=== PATIENT | female | born 1970 | race Two or more races ===

== ENCOUNTER 2017-06-19 17:53 | Emergency (ER) | payer SELFPAY ==
[~2017-06-19] VITALS: Ht 152.4 cm; Wt 59.0 kg
[2017-06-19 18:04] VITALS: BP 126/60
[2017-06-19 19:23] LABS: BASOPHILS % (AUTO) 0.8 % (0.0-2.0); EOSINOPHILS % (AUTO) 0.3 % (0.0-3.0); HEMATOCRIT 41.3 % (37.0-47.0); HEMOGLOBIN 13.3 G/DL (12.0-16.0); MEAN CORPUSCULAR VOLUME 92 FL (80-99); MONOCYTES % (AUTO) 4.8 % (1.0-10.0); NEUTROPHILS % (AUTO) 72.1 % (45.0-75.0); PLATELET COUNT 177 K/UL (150-450); RED CELL DISTRIBUTION WIDTH 11.4 % (11.6-14.8); WHITE BLOOD COUNT 11.3 K/UL (4.8-10.8)
[2017-06-19 19:31] LABS: ANION GAP 12 mmol/L (5-15); BLOOD UREA NITROGEN 16 mg/dL (7-18); CALCIUM 8.9 MG/DL (8.5-10.1); CARBON DIOXIDE 22 MMOL/L (21-32); CHLORIDE 106 MMOL/L (98-107); CREATININE 0.8 MG/DL (0.55-1.30); POTASSIUM 3.6 MMOL/L (3.5-5.1); SODIUM 140 MMOL/L (136-145)
[2017-06-19 19:35] LABS: ALANINE AMINOTRANSFERASE 40 U/L (12-78); ALBUMIN 3.6 G/DL (3.4-5.0); ALKALINE PHOSPHATASE 92 U/L (46-116); ASPARTATE AMINO TRANSFERASE 26 U/L (15-37); BILIRUBIN,TOTAL 0.2 MG/DL (0.2-1.0)
[2017-06-19 19:53] VITALS: BP 124/72
[2017-06-19 21:20] VITALS: BP 122/64
--- NOTE | 2017-06-20 09:45 | Diagnostic Imaging Report ---
Indication: Altered mental status Technique: Contiguous 5 mm thick transaxial imaging of the head obtained in a Siemens Sensation [address] scanner. Soft tissue and bone windows generated. Automatic Exposure Control was utilized. Total Dose length Product (DLP): 1368.[address] Dose Index Volume (CTDIvol): 70.38 mGy Comparison: none Findings: The size and configuration of the cortical sulci, basal cisterns, and ventricles are within normal limits for age. There is no mass effect, midline shift, or edema identified. There is no evidence of acute hemorrhage or abnormal intra-axial or extra-axial fluid collections. The bones and soft tissues are unremarkable. Small air-fluid level noted in the left maxillary sinus. Impression: No mass effect, edema or acute bleed. Air fluid level left maxillary sinus presumably due to sinusitis. Please correlate clinically. The CT scanner at [facility] is accredited by the [employer] and the scans are performed using dose optimization techniques as appropriate to a performed exam including Automatic Exposure control.
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
== END 2017-06-19 21:20 | disposition home or self-care (01) ==
LOC: EDBD 17:53 → EMR 18:20
DX: F12.10 Cannabis abuse, uncomplicated (principal); R40.4 Transient alteration of awareness
CPT/HCPCS: 36415; 70450; 80053; 80307; 80329; 81025; 85025; 96360; 99284